=== PATIENT | female | born 1945 | race Caucasian/White ===

== ENCOUNTER 2017-01-20 18:41 | Emergency (ER) | payer MEDICARE, MEDICAID ==
--- NOTE | 2017-01-24 19:20 | ER ---
ADMIT: 01/20/2017 RM/LOC: ER [facility] MR#: [id number] [address] [id number] ALEJANDRA HUTCHINSANETTE [address] [place] [address] Emergency Room Report SEX: F AGE: 71 : 1945 DATE: 01/20/2017 HISTORY OF PRESENT ILLNESS: The patient is a 71-year-old female with a past medical history of breast cancer and bilateral mastectomy 10 years ago, came to the ER with chief complaint of diaphoresis and feeling clammy and she felt very dizzy for 2 or 3 minutes today before coming to the hospital. The patient denies any fall or loss of consciousness. The patient also states while the incident happened this afternoon, she lost control of the urine which had never happened before, but after that, she could hold the urine. The patient denies any new backache or trauma. The patient also complains of left anterior mostly posterior chest and shoulder pain, which has been chronic and [id number] in severity and the patient states she is going to see a coding and reimbursement specialist next week in [place] to follow up with the pain. The patient also has some chronic numbness of the left upper extremity and some lymphedema of the left lower extremity following the mastectomy 10 years ago. PHYSICAL EXAMINATION: GENERAL: In the ER, the patient was [id number] distress when I saw the patient. VITAL SIGNS: The patient was afebrile, respiratory rate 16, heart rate of 83, blood pressure of 134/59. HEAD and NECK: Normal. LUNGS: Bilateral equal breath sounds. CHEST: In the posterior left shoulder, there were some tender points that elicits the very same pain the patient had on the chest. I did not feel any crepitation. HEART: Normal heart sounds without any gallops or murmurs. ABDOMEN: Soft and nontender. EXTREMITIES: The patient had left upper extremity lymphedema without any tenderness, which per patient had not changed the sized for years. The patient had normal peripheral pulses. In the lower extremity, the patient had no swelling or tenderness. NEUROLOGICAL: Cranial nerve, motor, sensory, cerebellar testing, and gait were all noncontributory and normal. EMERGENCY ROOM COURSE: EKG did not show any ST or T changes or Q-waves or arrhythmia and was normal sinus rhythm with a rate of 79. Cardiac enzymes ADMIT: 01/20/2017 RM/LOC: ER [facility] MR#: [id number] [address] [id number] JOSE HUTCHINS [address] [place] [address] Emergency Room Report SEX: F AGE: 71 : 1945 were negative. Chest x-ray was noncontributory. Troponin I was negative. D- dimer was elevated to 1.74. CTA of the chest, CTA was negative for pulmonary emboli, but was suggestive of bilateral pulmonary metastases and pathologic lymphadenopathy in the left hilar lesion, mediastinum, left supraclavicular lesion. CT of the brain also did not show any acute intracranial hemorrhage, but was positive for nonspecific white matter hypoattenuation. The case was discussed with the patient and possibility of questionable metastatic breast cancer was discussed with the patient. The patient was advised to follow up with the primary doctor next working day and also was advised to inform the oncologist of the CT results. The patient was provided with the printout of the CT scans. The patient is stable in no pain or distress at the moment and was stable to be discharged to home to be followed up by the primary doctor. Jarocho Cervantes MD/ kiah JOB #: [id number] CC: Teofilo Martinez MD, Attending Physician VIOLA Kilgore, Family Physician
== END 2017-01-20 22:25 | disposition home or self-care (01) ==
LOC: ER 18:41
DX: C78.00 Secondary malignant neoplasm of unspecified lung (principal); Z85.3 Personal history of malignant neoplasm of breast